=== PATIENT | female | born 1945 | race Caucasian/White ===

== ENCOUNTER 2017-05-09 10:53 | Outpatient (CLI) | payer MEDICARE ==
--- NOTE | 2017-05-09 14:24 | MMO ---
SCREENING MAMMOGRAPHY: Date: 05-09-17 Comparison: 04-25-16, 02-03-15, 01-29-14 History: Screening mammography. FINDINGS: This study is interpreted with the assistance of computer aided detection. The breasts are primarily composed of fatty tissue. Benign calcification is seen bilaterally. There is no dominant mass or arch itectural distortion. No concerning calcifications are seen. IMPRESSION: BIRADS 2 - benign findings. Recommend annual screening mammography. POS: [facility]
== END 2017-05-09 10:54 | disposition home or self-care (01) ==
LOC: SCSMAMMO 10:53
PROVIDERS: ATTEND Family Medicine
DX: Z12.31 Encounter for screening mammogram for malignant neoplasm of breast (principal)
CPT/HCPCS: 77067

== ENCOUNTER 2017-10-04 10:13 | Outpatient (CLI) | payer MEDICARE ==
--- NOTE | 2017-10-04 12:42 | CT ---
LOW DOSE SCREENING CT EXAMINATION OF THE CHEST: 10/04/2017 HISTORY: Nicotine dependence. History of smoking one pack of cigarettes per day for 30 years. COMPARISON: None. TECHNIQUE: Low dose, noncontrast enhanced CT examination of the chest, in the axial plane, with coronal and sagi ttal reformatted imaging provided. FINDINGS: Limited evaluation of the upper abdomen demonstrates biliary air within the left lobe of the liver, s uggesting prior sphincterotomy. There is scattered atherosclerotic calcification of the upper abdomi nal aorta and its branches. There is scattered atherosclerotic calcification of the coronary arteries. Limited assessment for chest lymphadenopathy appears unremarkable. Calcified nodes are present in th e subcarinal and right hilar region. No pleural, pericardial, or mediastinal fluid is noted. Right middle lobe: Small medial granuloma on axial image 32. No discrete nodule. Right upper lobe: No discrete pulmonary nodule. Right lower lobe: Areas of linear increased density are noted within the inferolateral right lower l obe, suggesting scar or volume loss. Left lower lobe: Mild increased linear density noted inferiorly, suggesting scar and/or volume loss. No discrete nodule identified. Left upper lobe: Linear density in the lingula suggests scar and/or volume loss. No discrete pulmon carole nodule seen. Review of the osseous structures demonstrates no worrisome lytic or blastic bone lesion. There is multilevel lateral osteophyte formation involving the mid and distal thoracic spine. IMPRESSION: Lung-RADS Category 1: Negative. Recommend continued annual screening with low dose chest CT in [address] [place] [id number]. POS: [facility]
== END 2017-10-04 10:14 | disposition home or self-care (01) ==
LOC: CT 10:13
DX: Z08 Encounter for follow-up examination after completed treatment for malignant neoplasm (principal); Z87.891 Personal history of nicotine dependence
CPT/HCPCS: G0297

== ENCOUNTER 2018-05-30 10:32 | Outpatient (CLI) | payer MEDICARE ==
--- NOTE | 2018-05-30 11:45 | MMO ---
BILATERAL SCREENING MAMMOGRAM: Date: 05/30/18 HISTORY: 73-year-old female. Routine screening mammography. COMPARISON: 05/09/17, 04/25/16, 02/03/15, and 01/28/14. TECHNIQUE: CC and MLO views of both breasts are submitted for interpretation. This patient's mammogram was reviewed with the assistance of computer-aided detection. FINDINGS: The breasts are predominantly fatty replaced. Bilaterally, no suspicious dominant mass, architectural distortion, or suspicious calcifications. Bilateral benign-appearing calcifications. IMPRESSION: BIRADS 2: Benign Finding(s) RECOMMENDATION: Annual mammogram. POS: [facility]
== END 2018-05-30 10:33 | disposition home or self-care (01) ==
LOC: SCSMAMMO 10:32
PROVIDERS: ATTEND Family Medicine
DX: Z12.31 Encounter for screening mammogram for malignant neoplasm of breast (principal)
CPT/HCPCS: 77067